=== PATIENT | female | born 1990 | race Caucasian/White ===

== ENCOUNTER → 2016-05-22 | Outpatient (CLI) | payer OTHER ==
--- NOTE | 2016-05-22 14:48 | DX ---
Left hand series 3 views 1315 hours. History: Fell on [place] jar. Lacerations. Findings: Osseous structures are intact without evidence of fracture. Joint spaces are normal. There is some soft tissue swelling about the second digit. No radiopaque foreign body is seen within the so ft tissues. Small smooth radiopaque density is seen on the soft tissues at the base of the fourth and fifth digits probably along the skin. Impression: 1. No acute osseous abnormality seen left hand. 2. No radiopaque foreign body embedded in the soft tissues.
== END ==
LOC: BMCIMAGING 13:19
PROVIDERS: ATTEND Emergency Medicine
DX: M79.642 Pain in left hand (principal); W19.XXXA Unspecified fall, initial encounter